=== PATIENT | male | born 1995 | race Caucasian/White ===

== ENCOUNTER 2018-02-21 17:11 | Emergency (ER) | payer BC, SELFPAY ==
[2018-02-21] MEDS ORDERED: TETANUS & DIPHTHERIA TOX,ADULT 0.5 ML VIAL ONE (20:17)
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
[2018-02-21] MEDS ORDERED: SILVER SULFADIAZINE 1% 25 GM TOP ONE (20:53)
[2018-02-21 21:29] VITALS: BP 132/81; TEMP 99.2
[2018-02-21 21:30] VITALS: O2SAT 98
== END 2018-02-21 20:58 | disposition home or self-care (01) ==
LOC: ER 17:11
DX: T25.222A Burn of second degree of left foot, initial encounter (principal); X10.1XXA Contact with hot food, initial encounter; Y93.89 Activity, other specified; Y92.9 Unspecified place or not applicable; Z23 Encounter for immunization
CPT/HCPCS: 90714; 99283